=== PATIENT | female | born 1945 | race Caucasian/White ===

== ENCOUNTER 2023-06-08 12:29 | Inpatient (IN) | payer MEDICARE, OTHER ==
[~2023-06-08] VITALS: Ht 149.9 cm; Wt 54.4 kg
[2023-06-08 13:04] LABS: BASOPHILS % (AUTO) 0.5 % (0.0-2.0); EOSINOPHILS # (AUTO) 0.1 K/uL (0.0-0.7); LYMPHOCYTES # (AUTO) 1.9 K/uL (0.8-4.8); MONOCYTES # (AUTO) 0.4 K/uL (0.1-1.30); NEUTROPHILS # (AUTO) 3.3 K/uL (1.8-8.9); WHITE BLOOD COUNT (AUTO) 5.7 K/uL (4.3-11.0)
[2023-06-08] MEDS ORDERED: MENT49GE TP (13:30)
[2023-06-08] MEDS ORDERED: FLUT16SP (13:30)
[2023-06-08] MEDS ORDERED: FURO-145 PO (13:30)
[2023-06-08] MEDS ORDERED: CALC500T52 PO (13:30)
[2023-06-08] MEDS ORDERED: BISA10SU11 RC (13:30)
[2023-06-08] MEDS ORDERED: LIDO1ADH82 TP (13:30)
[2023-06-08] MEDS ORDERED: GABA-532 PO (13:30)
[2023-06-08] MEDS ORDERED: POLY17PO4 PO (13:30)
[2023-06-08] MEDS ORDERED: ZOLP5TAB8 PO (13:30)
[2023-06-08] MEDS ORDERED: CRAN425C6 PO (13:30)
[2023-06-08] MEDS ORDERED: NA P133E RC (13:30)
[2023-06-08] MEDS ORDERED: ACET-2605 PO (13:30)
[2023-06-08] MEDS ORDERED: LORA10TA7 PO (13:30)
[2023-06-08] MEDS ORDERED: CALC500T13 PO (13:30)
[2023-06-08] MEDS ORDERED: FERR325T23 PO (13:30)
[2023-06-08] MEDS ORDERED: MAG30ORA PO ×2 (13:30)
[2023-06-08] MEDS ORDERED: ACET-868 PO (13:30)
[2023-06-08] MEDS ORDERED: SODI88SP18 (13:30)
[2023-06-08] MEDS ORDERED: MULT-447 PO (13:30)
[2023-06-08] MEDS ORDERED: MAGN400O6 PO (13:30)
[2023-06-08] MEDS ORDERED: CHOL100043 PO (13:30)
[2023-06-08] MEDS ORDERED: OMEP20CA15 PO (13:30)
[2023-06-08 13:33] LABS: EOSINOPHILS % (AUTO) 1.7 % (0.0-6.0); HEMATOCRIT 39 % (33-45); HEMOGLOBIN 12.9 g/dL (11.5-14.8); LYMPHOCYTES % (AUTO) 33.2 % (20.0-44.0); MEAN CORPUSCULAR HEMOGLOBIN 28 PG (26.0-33.0); MEAN CORPUSCULAR HGB CONC 33 g/dl (31.0-36.0); MEAN CORPUSCULAR VOLUME 87 fL (82-100); MONOCYTES % (AUTO) 6.9 % (2.0-12.0); NEUTROPHILS % (AUTO) 57.7 % (43.0-81.0); PLATELET COUNT (AUTO) 298 K/uL (150-450); RED BLOOD CELL COUNT(AUTO) 4.53 MIL/uL (4.0-5.2); RED CELL DISTRIBUTION WIDTH 14.8 % (11.5-15.0)
[2023-06-08 14:43] LABS: CALCIUM, SERUM 9.3 mg/dL (8.5-10.1); CARBON DIOXIDE 26 mmol/L (21-32); CHLORIDE 100 mmol/L (98-107); CREATININE 0.7 mg/dL (0.6-1.3); GLUCOSE 84 mg/dL (74-106); SODIUM SERUM 136 mmol/L (136-145); UREA NITROGEN, BLOOD 14 mg/dL (7-18)
[2023-06-08] MEDS ORDERED: ACETAMINOPHEN 325 MG TABLET PO PRN (15:00)
[2023-06-08] MEDS ORDERED: ACETAMINOPHEN ES 500 MG TABLET PO PRN (15:00)
[2023-06-08] MEDS ORDERED: MAGNESIUM HYDROXIDE 30 ML UDC PO PRN (15:00)
[2023-06-08] MEDS ORDERED: LORATADINE 10 MG TABLET PO PRN (15:00)
[2023-06-08] MEDS ORDERED: BISACODYL SUPP (10 MG) 10 MG/SUPP.RECT SUPP.RECT RC PRN (15:00)
[2023-06-08 15:02] LABS: ALANINE AMINOTRANSFERASE 13 U/L (12-78); ALBUMIN 3.9 g/dL (3.4-5.0); ALCOHOL, BLOOD 3 mg/dL (0-10); ALKALINE PHOSPHATASE 98 U/L (46-116); ASPARTATE AMINOTRANSFERASE 12 U/L (15-37); BILIRUBIN,DIRECT 0.1 mg/dL (0.0-0.2); BILIRUBIN,TOTAL 0.3 mg/dL (0.2-1.0); TOTAL PROTEIN, SERUM 8.4 g/dL (6.4-8.2)
[2023-06-08 15:06] LABS: ACETAMINOPHEN 0 ug/ml (10-30); SALICYLATE 1.3 mg/dL (2.8-20.0)
[2023-06-08 15:11] LABS: APPEARANCE,URINE SLIGHTLY CLOUDY (CLEAR); BILIRUBIN,URINE NEGATIVE (NEGATIVE); BLOOD, URINE TRACE-INTA Ery/uL (NEGATIVE); COLOR,URINE YELLOW (YELLOW); KETONES,URINE NEGATIVE (NEGATIVE); LEUKOCYTE ESTERASE ,URINE TRACE (NEGATIVE); NITRITE, URINE NEGATIVE (NEGATIVE); PROTEIN,URINE NEGATIVE (NEGATIVE); UGLUCOSE NEGATIVE (NEGATIVE); UROBILINOGEN,URINE 0.2 EU/dL (0.2)
[2023-06-08 15:27] LABS: AMPHETAMINE, URINE NEGATIVE (NEGATIVE); BARBITURATE, URINE NEGATIVE (NEGATIVE); BENZODIAZEPINE, URINE NEGATIVE (NEGATIVE); CANNABINOID, URINE NEGATIVE (NEGATIVE); COCCAINE, URINE NEGATIVE (NEGATIVE); OPIATE, URINE NEGATIVE (NEGATIVE); PHENCYCLIDINE SCREEN,URINE NEGATIVE (NEGATIVE)
[2023-06-08 15:53] LABS: ADD URINE CULTURE YES; BACTERIA,URINE 4+ /HPF (None Seen); SQUAMOUS EPITHELIAL CELL,UR 0-2 /HPF (None Seen)
[2023-06-08] MEDS ORDERED: DEXTROSE 50%-WATER 50 ML DISP.SYRIN IV PRN (16:30)
[2023-06-08] MEDS ORDERED: INSULIN REGULAR, HUMAN 100 UNIT/ML 3 ML VIAL SQ PRN (16:30)
[2023-06-08] MEDS: GABAPENTIN 300 MG CAPSULE PO SCH (17:00)
[2023-06-08] MEDS: BLOOD SUGAR DIAGNOSTIC 1 EACH STRIP IN SCH ×2 (17:30→22:09)
[2023-06-08] MEDS ORDERED: PANTOPRAZOLE 40 MG TABLET.DR PO ONE (18:47)
[2023-06-08] MEDS ORDERED: GABAPENTIN 300 MG CAPSULE ONE (18:47)
[2023-06-08] MEDS: PANTOPRAZOLE 40 MG TABLET.DR PO SCH (18:53)
[2023-06-08 22:44] VITALS: O2SAT 97
[2023-06-09 00:30] VITALS: BP 114/60; TEMP 98.1
[2023-06-09] MEDS ORDERED: MAGNESIUM HYDROXIDE 30 ML UDC PO PRN (01:00)
[2023-06-09] MEDS ORDERED: Z GUARD REMEDY 4 OZ OINT TP PRN (01:00)
[2023-06-09] MEDS ORDERED: MAG HYDROX/AL HYDROX/SIMETH 30 ML UDC PO PRN (01:00)
[2023-06-09] MEDS ORDERED: BLOOD SUGAR DIAGNOSTIC 1 EACH STRIP IN ONE (01:00)
[2023-06-09] MEDS ORDERED: LORAZEPAM 0.5 MG TABLET PO PRN (01:00)
[2023-06-09] MEDS ORDERED: ACETAMINOPHEN 325 MG TABLET PO PRN (01:00)
[2023-06-09] MEDS: TEMAZEPAM 7.5 MG CAPSULE PO PRN ×2 (01:11→21:57)
[2023-06-09 08:00] VITALS: BP 100/60; TEMP 97.7; O2SAT 94
[2023-06-09] MEDS: LIDOCAINE 5% (PATCH) 1 EA PATCH TP SCH (08:51)
[2023-06-09] MEDS: BLOOD SUGAR DIAGNOSTIC 1 EACH STRIP IN SCH ×4 (08:51→21:56)
[2023-06-09] MEDS: FERROUS SULFATE (325 MG) 325 MG/TAB TABLET PO SCH (08:51)
[2023-06-09] MEDS: GABAPENTIN 300 MG CAPSULE PO SCH ×2 (08:52→16:51)
[2023-06-09] MEDS: MULTIVIT W/MINERALS 1 TAB TABLET PO SCH (08:52)
[2023-06-09] MEDS: CHOLECALCIFEROL 1,000 UNIT TABLET (VIT D3) PO SCH (08:52)
[2023-06-09] MEDS: FUROSEMIDE 20 MG TABLET PO SCH (08:52)
[2023-06-09] MEDS: CALCIUM CARBONATE (1250) 500 MG TABLET PO SCH (08:52)
[2023-06-09] MEDS: FLUTICASONE PROPIONATE 16 GM BOTTLE NS SCH (08:52)
[2023-06-09] MEDS ORDERED: Medication Not On Formulary EA (Cranberry Extract (Cranberry) 425 MG) PO SCH (09:00)
[2023-06-09] MEDS: busPIRone 5 MG TABLET PO SCH ×2 (13:07→16:50)
[2023-06-09 16:00] VITALS: BP 122/76; TEMP 97.6; O2SAT 99
[2023-06-09] MEDS: PANTOPRAZOLE 40 MG TABLET.DR PO SCH (17:19)
[2023-06-09] MEDS: CEPHALEXIN MONOHYDRATE 250 MG CAPSULE PO SCH (17:20)
[2023-06-09 20:00] VITALS: BP 105/62; TEMP 97.6; O2SAT 97
[2023-06-10] MEDS: ACETAMINOPHEN ES 500 MG TABLET PO PRN (03:22)
[2023-06-10] MEDS: BLOOD SUGAR DIAGNOSTIC 1 EACH STRIP IN SCH ×4 (07:30→21:42)
[2023-06-10 08:00] VITALS: BP 132/65; TEMP 98.1; O2SAT 98
[2023-06-10] MEDS: LIDOCAINE 5% (PATCH) 1 EA PATCH TP SCH ×2 (09:00→09:48)
[2023-06-10] MEDS: busPIRone 5 MG TABLET PO SCH ×4 (09:00→17:00)
[2023-06-10] MEDS: CALCIUM CARBONATE (1250) 500 MG TABLET PO SCH ×2 (09:00→09:50)
[2023-06-10] MEDS: GABAPENTIN 300 MG CAPSULE PO SCH ×2 (09:49→16:42)
[2023-06-10] MEDS: CHOLECALCIFEROL 1,000 UNIT TABLET (VIT D3) PO SCH (09:49)
[2023-06-10] MEDS: FUROSEMIDE 20 MG TABLET PO SCH (09:49)
[2023-06-10] MEDS: FERROUS SULFATE (325 MG) 325 MG/TAB TABLET PO SCH (09:50)
[2023-06-10] MEDS: MULTIVIT W/MINERALS 1 TAB TABLET PO SCH (09:54)
[2023-06-10] MEDS: CEPHALEXIN MONOHYDRATE 250 MG CAPSULE PO SCH ×3 (09:55→16:56)
[2023-06-10] MEDS: FLUTICASONE PROPIONATE 16 GM BOTTLE NS SCH (09:56)
[2023-06-10] MEDS ORDERED: Z GUARD REMEDY 4 OZ OINT TP PRN (14:30)
[2023-06-10 16:00] VITALS: BP 111/73; TEMP 97.5; O2SAT 97
[2023-06-10] MEDS: OFLOXACIN 0.3% OPHTH 5 ML BOTTLE RIGHTEYE SCH (16:43)
[2023-06-10] MEDS: PANTOPRAZOLE 40 MG TABLET.DR PO SCH (17:37)
[2023-06-10 20:54] VITALS: BP 112/65; TEMP 97.9; O2SAT 98
[2023-06-10] MEDS: Z GUARD REMEDY 4 OZ OINT TP SCH (21:11)
[2023-06-11] MEDS: BLOOD SUGAR DIAGNOSTIC 1 EACH STRIP IN SCH ×4 (07:30→21:32)
[2023-06-11 08:00] VITALS: BP 103/62; TEMP 98.7; O2SAT 97
[2023-06-11] MEDS: CHOLECALCIFEROL 1,000 UNIT TABLET (VIT D3) PO SCH (08:20)
[2023-06-11] MEDS: CALCIUM CARBONATE (1250) 500 MG TABLET PO SCH (08:20)
[2023-06-11] MEDS: LIDOCAINE 5% (PATCH) 1 EA PATCH TP SCH (08:21)
[2023-06-11] MEDS: GABAPENTIN 300 MG CAPSULE PO SCH ×2 (08:21→17:44)
[2023-06-11] MEDS: FERROUS SULFATE (325 MG) 325 MG/TAB TABLET PO SCH (08:22)
[2023-06-11] MEDS: CEPHALEXIN MONOHYDRATE 250 MG CAPSULE PO SCH ×3 (08:22→17:44)
[2023-06-11] MEDS: busPIRone 5 MG TABLET PO SCH ×2 (08:22→17:44)
[2023-06-11] MEDS: FUROSEMIDE 20 MG TABLET PO SCH (08:23)
[2023-06-11] MEDS: Z GUARD REMEDY 4 OZ OINT TP SCH ×2 (08:23→21:19)
[2023-06-11] MEDS: MULTIVIT W/MINERALS 1 TAB TABLET PO SCH (08:23)
[2023-06-11] MEDS: FLUTICASONE PROPIONATE 16 GM BOTTLE NS SCH (08:30)
[2023-06-11] MEDS: OFLOXACIN 0.3% OPHTH 5 ML BOTTLE RIGHTEYE SCH ×2 (08:30→17:44)
[2023-06-11] MEDS: ACETAMINOPHEN ES 500 MG TABLET PO PRN (15:49)
[2023-06-11 16:00] VITALS: BP 105/55; TEMP 97.7; O2SAT 97
[2023-06-11] MEDS: PANTOPRAZOLE 40 MG TABLET.DR PO SCH (17:44)
[2023-06-11 20:44] VITALS: BP 100/53; TEMP 98.2; O2SAT 96
[2023-06-11] MEDS: TEMAZEPAM 7.5 MG CAPSULE PO PRN (22:01)
[2023-06-12] MEDS: BLOOD SUGAR DIAGNOSTIC 1 EACH STRIP IN SCH (07:30)
[2023-06-12 08:00] VITALS: BP 100/57; TEMP 98.1; O2SAT 96
[2023-06-12] MEDS: GABAPENTIN 300 MG CAPSULE PO SCH (08:21)
[2023-06-12] MEDS: FLUTICASONE PROPIONATE 16 GM BOTTLE NS SCH (08:21)
[2023-06-12] MEDS: LIDOCAINE 5% (PATCH) 1 EA PATCH TP SCH (08:21)
[2023-06-12] MEDS: OFLOXACIN 0.3% OPHTH 5 ML BOTTLE RIGHTEYE SCH (08:21)
[2023-06-12] MEDS: FERROUS SULFATE (325 MG) 325 MG/TAB TABLET PO SCH (08:22)
[2023-06-12] MEDS: CHOLECALCIFEROL 1,000 UNIT TABLET (VIT D3) PO SCH (08:22)
[2023-06-12] MEDS: MULTIVIT W/MINERALS 1 TAB TABLET PO SCH (08:22)
[2023-06-12] MEDS: CALCIUM CARBONATE (1250) 500 MG TABLET PO SCH (08:22)
[2023-06-12] MEDS: CEPHALEXIN MONOHYDRATE 250 MG CAPSULE PO SCH (08:23)
[2023-06-12] MEDS: busPIRone 5 MG TABLET PO SCH (08:23)
[2023-06-12] MEDS: FUROSEMIDE 20 MG TABLET PO SCH ×2 (08:23→08:24)
[2023-06-12] MEDS: Z GUARD REMEDY 4 OZ OINT TP SCH (09:21)
== END 2023-06-12 10:50 | DRG 885 ==
LOC: ER 12:29 → GPS 23:44
PROVIDERS: ADMIT Nurse Practitioner Psychiatric/Mental Health
DX: F20.9 Schizophrenia, unspecified (principal); I69.351 Hemiplegia and hemiparesis following cerebral infarction affecting right dominant side; N39.0 Urinary tract infection, site not specified; F29 Unspecified psychosis not due to a substance or known physiological condition; F32.A Depression, unspecified; F41.9 Anxiety disorder, unspecified; K21.9 Gastro-esophageal reflux disease without esophagitis; Z20.822 Contact with and (suspected) exposure to COVID-19; E11.9 Type 2 diabetes mellitus without complications; R26.9 Unspecified abnormalities of gait and mobility; Z91.148 Patient's other noncompliance with medication regimen for other reason; M62.50 Muscle wasting and atrophy, not elsewhere classified, unspecified site; I89.0 Lymphedema, not elsewhere classified; M19.90 Unspecified osteoarthritis, unspecified site; Z88.6 Allergy status to analgesic agent; Z88.5 Allergy status to narcotic agent; Z88.8 Allergy status to other drugs, medicaments and biological substances; Z79.899 Other long term (current) drug therapy; Z79.51 Long term (current) use of inhaled steroids; I10 Essential (primary) hypertension; E78.5 Hyperlipidemia, unspecified; F39 Unspecified mood [affective] disorder; Z73.6 Limitation of activities due to disability
CPT/HCPCS: 36415; 80048-TC; 80076-TC; 81001; 82962-TC; 85025-TC; 87081-TC; 87086-TC; 97112-TC; 97530-TC; G0480; J1815

== ENCOUNTER 2024-07-02 11:25 | Inpatient (IN) | payer MEDICARE, OTHER ==
[~2024-07-02] VITALS: Ht 157.5 cm; Wt 50.8 kg
[~2024-07-02 11:25] MED LIST: ACET-2605 PO; ACET-868 PO; BISA10SU11 RC; CALC500T13 PO; CALC500T52 PO; CHOL100043 PO; CRAN425C6 PO; FERR325T23 PO; FLUT16SP BNOSTRILS; FURO-145 PO; GABA-532 PO; LIDO1ADH82 TP; LORA10TA7 PO; MAG30ORA PO; MAGN400O6 PO; MENT49GE TP; MULT-447 PO; NA P133E RC; OMEP20CA15 PO; POLY17PO4 PO; SODI88SP18; ZOLP5TAB8 PO
[2024-07-02 12:43] LABS: BASOPHILS % (AUTO) 0.4 % (0.0-2.0); EOSINOPHILS % (AUTO) 0.6 % (0.0-6.0); HEMATOCRIT 38 % (33-45); HEMOGLOBIN 12.7 g/dL (11.5-14.8); LYMPHOCYTES # (AUTO) 1.6 K/uL (0.8-4.8); LYMPHOCYTES % (AUTO) 23.6 % (20.0-44.0); MEAN CORPUSCULAR HEMOGLOBIN 30 PG (26.0-33.0); MEAN CORPUSCULAR HGB CONC 34 g/dl (31.0-36.0); MEAN CORPUSCULAR VOLUME 88 fL (82-100); MONOCYTES # (AUTO) 0.4 K/uL (0.1-1.30); MONOCYTES % (AUTO) 5.5 % (2.0-12.0); NEUTROPHILS # (AUTO) 4.9 K/uL (1.8-8.9); NEUTROPHILS % (AUTO) 69.9 % (43.0-81.0); PLATELET COUNT (AUTO) 271 K/uL (150-450); RED BLOOD CELL COUNT(AUTO) 4.29 MIL/uL (4.0-5.2); RED CELL DISTRIBUTION WIDTH 14.6 % (11.5-15.0)
[2024-07-02 12:45] LABS: ALANINE AMINOTRANSFERASE 24 U/L (12-78); ALCOHOL, BLOOD < 3 mg/dL (0-10); ALKALINE PHOSPHATASE 89 U/L (46-116); ASPARTATE AMINOTRANSFERASE 21 U/L (15-37); BILIRUBIN,DIRECT 0.2 mg/dL (0.0-0.2); BILIRUBIN,TOTAL 0.7 mg/dL (0.2-1.0); CALCIUM, SERUM 8.6 mg/dL (8.5-10.1); CARBON DIOXIDE 25 mmol/L (21-32); CHLORIDE 106 mmol/L (98-107); CREATININE 0.8 mg/dL (0.6-1.3); GLUCOSE 110 mg/dL (74-106); POTASSIUM 3.9 mmol/L (3.5-5.1); SODIUM SERUM 141 mmol/L (136-145); TOTAL PROTEIN, SERUM 7.6 g/dL (6.4-8.2); UREA NITROGEN, BLOOD 11 mg/dL (7-18)
[2024-07-02 12:53] LABS: ACETAMINOPHEN <10 ug/ml (10-30)
[2024-07-02 14:15] LABS: APPEARANCE,URINE CLOUDY (CLEAR); BILIRUBIN,URINE NEGATIVE (NEGATIVE); BLOOD, URINE 1+ Ery/uL (NEGATIVE); COLOR,URINE YELLOW (YELLOW); KETONES,URINE 2+ mg/dL (NEGATIVE); LEUKOCYTE ESTERASE ,URINE NEGATIVE (NEGATIVE); NITRITE, URINE NEGATIVE (NEGATIVE); PROTEIN,URINE 1+ mg/dl (NEGATIVE); UGLUCOSE NEGATIVE (NEGATIVE)
[2024-07-02 14:29] LABS: AMPHETAMINE, URINE NEGATIVE (NEGATIVE); BARBITURATE, URINE NEGATIVE (NEGATIVE); BENZODIAZEPINE, URINE NEGATIVE (NEGATIVE); CANNABINOID, URINE NEGATIVE (NEGATIVE); COCCAINE, URINE NEGATIVE (NEGATIVE); OPIATE, URINE NEGATIVE (NEGATIVE); PHENCYCLIDINE SCREEN,URINE NEGATIVE (NEGATIVE)
[2024-07-02] MEDS ORDERED: FLUT12AE IH (14:35)
[2024-07-02] MEDS ORDERED: PANT40TA2 PO (14:35)
[2024-07-02] MEDS ORDERED: METO-295 PO (14:35)
[2024-07-02] MEDS ORDERED: NITR100C6 PO (14:35)
[2024-07-02] MEDS ORDERED: DOCU100T2 PO (14:35)
[2024-07-02 14:52] LABS: ADD URINE CULTURE NO; BACTERIA,URINE Few /HPF (None Seen)
[2024-07-02 14:53] LABS: SQUAMOUS EPITHELIAL CELL,UR Moderate /HPF (None Seen)
[2024-07-02 14:54] LABS: MUCUS,URINE Few /LPF (None Seen)
[2024-07-02] MEDS ORDERED: CEPHALEXIN MONOHYDRATE 500 MG CAPSULE PO ONE (15:30)
[2024-07-02] MEDS: CEPHALEXIN MONOHYDRATE 500 MG CAPSULE PO ONE (15:39)
[2024-07-02] MEDS: CEPHALEXIN MONOHYDRATE 500 MG CAPSULE PO SCH (20:19)
[2024-07-02 21:50] VITALS: BP 108/63; TEMP 97.6; O2SAT 97
[2024-07-02] MEDS ORDERED: MAGNESIUM HYDROXIDE 30 ML UDC PO PRN (22:00)
[2024-07-02] MEDS ORDERED: clonazePAM 0.5 MG TABLET PO PRN ×2 (22:00)
[2024-07-02] MEDS: BLOOD SUGAR DIAGNOSTIC 1 EACH STRIP IN ONE (22:40)
[2024-07-02] MEDS: TEMAZEPAM 7.5 MG CAPSULE PO PRN (23:11)
[2024-07-03 08:00] VITALS: BP 136/81; TEMP 97.5; O2SAT 96
[2024-07-03] MEDS: ACETAMINOPHEN 325 MG TABLET PO PRN (10:48)
[2024-07-03] MEDS ORDERED: BISACODYL SUPP (10 MG) 10 MG/SUPP.RECT SUPP.RECT RC PRN (11:00)
[2024-07-03] MEDS ORDERED: NA PHOS,M-B/NA PHOS,DI-BA 1 EA ENEMA RC PRN (11:00)
[2024-07-03] MEDS ORDERED: MAGNESIUM HYDROXIDE 30 ML UDC PO PRN (11:00)
[2024-07-03] MEDS ORDERED: ACETAMINOPHEN 325 MG TABLET PO PRN (11:00)
[2024-07-03] MEDS ORDERED: MAG HYDROX/AL HYDROX/SIMETH 30 ML UDC PO PRN (11:00)
[2024-07-03 16:00] VITALS: BP 129/80; TEMP 98.6; O2SAT 96
[2024-07-03] MEDS: METOCLOPRAMIDE HCL 10 MG TABLET PO SCH (16:32)
[2024-07-03] MEDS: GABAPENTIN 100 MG CAPSULE PO SCH (16:32)
[2024-07-03 20:14] VITALS: BP 107/56; TEMP 98.3; O2SAT 95
[2024-07-04 08:00] VITALS: BP 107/66; TEMP 97.7; O2SAT 96
[2024-07-04] MEDS: CALCIUM CARBONATE (1250) 500 MG TABLET PO SCH (09:00)
[2024-07-04] MEDS: FUROSEMIDE 20 MG TABLET PO SCH (09:00)
[2024-07-04] MEDS: LIDOCAINE 5% (PATCH) 1 EA PATCH TP SCH (09:00)
[2024-07-04] MEDS: FLUTICASONE/VILANTEROL 1 EACH BLST.W.DEV IH SCH (09:07)
[2024-07-04] MEDS: FLUTICASONE PROPIONATE 16 GM BOTTLE NS SCH (09:07)
[2024-07-04] MEDS: DOCUSATE SODIUM 100 MG CAPSULE PO SCH (09:10)
[2024-07-04] MEDS: PANTOPRAZOLE 40 MG TABLET.DR PO SCH (09:10)
[2024-07-04] MEDS: FERROUS SULFATE (325 MG) 325 MG/TAB TABLET PO SCH (09:10)
[2024-07-04] MEDS: MULTIVIT W/MINERALS 1 TAB TABLET PO SCH (09:10)
[2024-07-04] MEDS: CHOLECALCIFEROL 1,000 UNIT TABLET (VIT D3) PO SCH (09:11)
[2024-07-04] MEDS: ARIPIPRAZOLE 2 MG TABLET PO SCH (09:11)
[2024-07-04 09:30] VITALS: BP 101/61
[2024-07-04 16:00] VITALS: BP 103/60; TEMP 98.6; O2SAT 95
[2024-07-04 20:00] VITALS: BP 117/58; TEMP 98.4; O2SAT 96
[2024-07-05 08:00] VITALS: BP 117/84; TEMP 97.8; O2SAT 96
[2024-07-05 16:00] VITALS: BP 101/58; TEMP 97.7; O2SAT 95
[2024-07-05 20:17] VITALS: BP 108/56; TEMP 98.1; O2SAT 96
[2024-07-05 21:00] VITALS: BP 112/65; TEMP 98; O2SAT 98
[2024-07-06 08:00] VITALS: BP 102/50; TEMP 97.8; O2SAT 97
[2024-07-06] MEDS: GABAPENTIN 300 MG CAPSULE PO SCH (09:58)
[2024-07-06] MEDS: ENSURE ENLIVE 237 ML LIQUID (VANILLA) PO SCH (12:13)
[2024-07-06 16:00] VITALS: BP 124/66; TEMP 98; O2SAT 95
[2024-07-06] MEDS: MAG HYDROX/AL HYDROX/SIMETH 30 ML UDC PO PRN (21:49)
[2024-07-06 22:47] VITALS: BP 114/62; TEMP 97.9; O2SAT 96
[2024-07-07 00:19] VITALS: BP 114/62; TEMP 97.7; O2SAT 99
[2024-07-07 08:00] VITALS: BP 100/55; TEMP 97.7; O2SAT 97
[2024-07-07 16:00] VITALS: BP 114/58; TEMP 97.9; O2SAT 96
[2024-07-08 08:00] VITALS: BP 124/82; TEMP 97.6; O2SAT 97
[2024-07-08 15:58] VITALS: BP 105/64; TEMP 97.8; O2SAT 97
[2024-07-08] MEDS: TEMAZEPAM 7.5 MG CAPSULE PO PRN (21:06)
[2024-07-08 21:31] VITALS: BP 123/74; TEMP 97.8; O2SAT 97
[2024-07-09 08:00] VITALS: BP 110/78; TEMP 98; O2SAT 97
[2024-07-09 16:00] VITALS: BP 122/69; TEMP 97.7; O2SAT 96
[2024-07-09 20:00] VITALS: BP 127/66; TEMP 98.2; O2SAT 96
[2024-07-09 20:36] VITALS: BP 127/66; TEMP 98.2; O2SAT 96
[2024-07-10 08:00] VITALS: BP 116/57; TEMP 97.9; O2SAT 97
[2024-07-10 16:00] VITALS: BP 121/77; TEMP 97.8; O2SAT 97
[2024-07-11 08:00] VITALS: BP 109/61; TEMP 98; O2SAT 94
[2024-07-11 16:00] VITALS: BP 115/63; TEMP 97.5; O2SAT 95
[2024-07-11 20:00] VITALS: BP 106/59; TEMP 97.8; O2SAT 95
[2024-07-11 20:46] VITALS: BP 106/59; TEMP 97.8; O2SAT 95
[2024-07-12 08:00] VITALS: BP 100/52; TEMP 98.8; O2SAT 95
[2024-07-12 16:00] VITALS: BP 116/65; TEMP 99; O2SAT 93
[2024-07-13 08:00] VITALS: BP 123/55; TEMP 98.1; O2SAT 95
[2024-07-13 16:00] VITALS: BP 127/53; TEMP 98.1; O2SAT 96
[2024-07-14 08:00] VITALS: BP 114/70; TEMP 97.9; O2SAT 98
== END 2024-07-14 13:20 | DRG 885 ==
LOC: ER 11:30 → GPS 21:21
PROVIDERS: ADMIT Psychiatry & Neurology Psychiatry; ATTEND Nurse Practitioner Family
DX: F29 Unspecified psychosis not due to a substance or known physiological condition (principal); G92.9 Unspecified toxic encephalopathy; N39.0 Urinary tract infection, site not specified; I69.351 Hemiplegia and hemiparesis following cerebral infarction affecting right dominant side; K21.9 Gastro-esophageal reflux disease without esophagitis; I10 Essential (primary) hypertension; D64.9 Anemia, unspecified; E11.40 Type 2 diabetes mellitus with diabetic neuropathy, unspecified; E78.5 Hyperlipidemia, unspecified; F20.9 Schizophrenia, unspecified; F41.1 Generalized anxiety disorder; G47.00 Insomnia, unspecified; M19.90 Unspecified osteoarthritis, unspecified site; Z20.822 Contact with and (suspected) exposure to COVID-19; R26.9 Unspecified abnormalities of gait and mobility; Z73.6 Limitation of activities due to disability; F32.9 Major depressive disorder, single episode, unspecified; B96.89 Other specified bacterial agents as the cause of diseases classified elsewhere; Z79.899 Other long term (current) drug therapy
CPT/HCPCS: 36415; 80048-TC; 80076-TC; 81001; 82962-TC; 85025-TC; 87081-TC; 97110-TC; 97530-TC; G0480; J8597